=== PATIENT | female | born 1990 | race Caucasian/White ===

== ENCOUNTER 2019-04-01 07:42 | Emergency (ER) | payer OTHER ==
[2019-04-01 08:03] VITALS: BP 140/83
--- NOTE | 2019-04-01 08:11 | UC ---
Ear Complaint HPI - HPI Summary HPI Summary: left ear plugged x 2 days no ear pain , has been using otc ear drops for the past 2 days without improvements no cold symptoms , no fever - History of Current Complaint Chief Complaint: UCEar Stated Complaint: LEFT EAR COMPLAINT Time Seen by Provider: 04/01/19 08:01 Hx Obtained From: Patient Hx Last Menstrual Period: 03/18/19 ?: No Onset/Duration: Gradual Onset, Lasting Days - 2, Still Present Severity Initially: Moderate Severity Currently: Moderate Pain Intensity: 0 Aggravating Factors: Nothing Alleviating Factors: Nothing Associated Signs/Symptoms: Negative: Discharge, Hearing Loss, Foreign Body Sensation, Trauma to Ear, Swelling @, URI Symptoms - Allergies/Home Medications Allergies/Adverse Reactions: Allergies Allergy/AdvReac Type Severity Reaction Status Date / Time azithromycin [From Zithromax] Allergy Rash Verified 04/01/19 08:04 Home Medications: Home Medications NK [No Home Medications Reported] 04/01/19 [History Confirmed 04/01/19] PMH/Surg Hx/FS Hx/Imm Hx - Additional Past Medical History Additional PMH: eating disorder, pre diabetes - Surgical History Surgical History: Yes Surgery Procedure, Year, and Place: L orif - Family History Known Family History: Positive: Non-Contributory - Social History Alcohol Use: Rare Substance Use Type: None Smoking Status (MU): Never Smoked Tobacco Review of Systems All Other Systems Reviewed And Are Negative: Yes Constitutional: Positive: Negative Skin: Positive: Negative Eyes: Positive: Negative ENT: Negative: Sore Throat, Ear Ache, Nasal Discharge, Sinus Congestion, Sinus Pain/Tenderness Respiratory: Positive: Negative Is Patient Immunocompromised?: No Physical Exam Triage Information Reviewed: Yes Appearance: Well-Appearing, No Pain Distress, Well-Nourished Vital Signs: Initial Vital Signs Temp 98.3 F 04/01/19 07:58 Pulse 82 04/01/19 07:58 Resp 16 04/01/19 07:58 BP 140/83 04/01/19 07:58 Pulse Ox 99 04/01/19 07:58 Vital Signs Reviewed: Yes Eye Exam: Normal Eyes: Positive: Conjunctiva Clear ENT: Positive: Normal ENT inspection, Hearing grossly normal, Pharynx normal, TMs normal, Other - bilateral cerumen impaction left more than right. Negative : TM bulging, TM dull, TM red Neck exam: Normal Neck: Positive: Supple, Nontender, No Lymphadenopathy Respiratory: Positive: Chest non-tender, Lungs clear, Normal breath sounds Cardiovascular: Positive: RRR, No Murmur, Pulses Normal Ear Complaint Course/Dx - Differential Dx/Diagnosis Provider Diagnosis: Impacted cerumen of both ears Discharge ED - Sign-Out/Discharge Documenting (check all that apply): Patient Departure All imaging exams completed and their final reports reviewed: No Studies - Discharge Plan Condition: Stable Disposition: HOME Patient Education Materials: Cerumen Impaction (ED) Referrals: No Primary Care Phys,NOPCP [Primary Care Provider] - If Needed - Billing Disposition and Condition Condition: STABLE Disposition: Home
== END 2019-04-01 08:16 | disposition home or self-care (01) ==
LOC: UCCORT 07:42
DX: H61.23 Impacted cerumen, bilateral (principal)
CPT/HCPCS: 99213; G0463

== ENCOUNTER 2019-04-21 07:50 | Emergency (ER) | payer OTHER ==
[2019-04-21 08:49] VITALS: BP 136/79
[2019-04-21] MEDS ORDERED: Albuterol 2.5 MG/3 ML NEB.SOL* (0.083%) INH ONE (09:16)
--- NOTE | 2019-04-21 09:33 | UC ---
Respiratory Complaint HPI - HPI Summary HPI Summary: cough x 3 days cough is dry, worse with deep breathing , better with rest and fluid, , + wheezing , chest tightness , nasal congestion no sob , no fever, no chills - History of Current Complaint Chief Complaint: UCRespiratory Stated Complaint: WHEEZING Time Seen by Provider: 04/21/19 09:14 Hx Obtained From: Patient Hx Last Menstrual Period: 03/20/19 ?: No Onset/Duration: Gradual Onset, Lasting Days - 3, Still Present Timing: Constant Severity Initially: Moderate Severity Currently: Moderate Pain Intensity: 7 Character: Cough: Nonproductive Aggravating Factors: Exertion, Deep Breaths Alleviating Factors: Nothing Associated Signs And Symptoms: Positive: Wheezing, URI, Nasal Congestion. Negative: Dyspnea, Fever, Chills, Pleuritic Chest Pain, Hemoptysis, Dizziness - Allergies/Home Medications Allergies/Adverse Reactions: Allergies Allergy/AdvReac Type Severity Reaction Status Date / Time azithromycin [From Zithromax] Allergy Rash Verified 04/21/19 08:38 Home Medications: Home Medications Albuterol HFA INHALER* [Ventolin HFA Inhaler*] 2 puff INH Q4H PRN 04/21/19 [ History Confirmed 04/21/19] Daily Steroid Inhaler 2 inh INH DAILY 04/21/19 [History] Loratadine [Claritin 10 MG CAP] 10 mg PO 04/21/19 [History] Montelukast Sodium TAB* [Singulair TAB*] 10 mg PO DAILY 04/21/19 [History Confirmed 04/21/19] Naproxen Sodium [Naproxen 220 mg] 220 mg PO PRN 04/21/19 [History] Sertraline* [Zoloft*] 100 mg PO DAILY 04/21/19 [History Confirmed 04/21/19] PMH/Surg Hx/FS Hx/Imm Hx Respiratory History: Asthma - Surgical History Surgical History: Yes Surgery Procedure, Year, and Place: L orif- LEFT ARM. WISDOM TEETH EXTRACTION - Family History Known Family History: Positive: Diabetes, Non-Contributory - Social History Alcohol Use: None Substance Use Type: None Smoking Status (MU): Never Smoked Tobacco Review of Systems All Other Systems Reviewed And Are Negative: Yes Constitutional: Positive: Negative Skin: Positive: Negative Eyes: Positive: Negative ENT: Positive: Negative Respiratory: Positive: Negative Cardiovascular: Positive: Negative Is Patient Immunocompromised?: No Physical Exam Triage Information Reviewed: Yes Appearance: Well-Appearing, No Pain Distress, Well-Nourished Vital Signs: Initial Vital Signs Temp 97.7 F 04/21/19 08:41 Pulse 85 04/21/19 08:41 Resp 20 04/21/19 08:41 BP 136/79 04/21/19 08:41 Pulse Ox 96 04/21/19 08:41 Vital Signs Reviewed: Yes Eye Exam: Normal Eyes: Positive: Conjunctiva Clear ENT: Positive: Normal ENT inspection, Hearing grossly normal, Pharynx normal Neck: Positive: Supple, Nontender, No Lymphadenopathy Respiratory: Positive: Chest non-tender, Decreased breath sounds, Wheezing Cardiovascular: Positive: RRR, No Murmur, Pulses Normal Abdominal Exam: Normal Respiratory Course/Dx - Differential Dx/Diagnosis Provider Diagnosis: URI (upper respiratory infection) Discharge ED - Sign-Out/Discharge Documenting (check all that apply): Patient Departure All imaging exams completed and their final reports reviewed: No Studies - Discharge Plan Condition: Stable Disposition: HOME Patient Education Materials: Upper Respiratory Infection (DC) Referrals: No Primary Care Phys,NOPCP [Primary Care Provider] - If Needed - Billing Disposition and Condition Condition: STABLE Disposition: Home
== END 2019-04-21 09:30 | disposition home or self-care (01) ==
LOC: UCCORT 07:50
DX: J06.9 Acute upper respiratory infection, unspecified (principal); J45.909 Unspecified asthma, uncomplicated; Z88.1 Allergy status to other antibiotic agents
CPT/HCPCS: 99211; G0463